=== PATIENT | female | born 1945 | race Caucasian/White ===

== ENCOUNTER 2022-04-09 08:30 | Inpatient (IN) | payer MEDICARE, OTHER ==
[~2022-04-09] VITALS: Ht 175.3 cm; Wt 72.3 kg
[2022-04-09 09:26] LABS: Potassium 4.2 mmol/L (3.5-5.1)
[2022-04-09 09:27] LABS: Eosinophils % (auto) 4.2 % (0.0-7.0); Hemoglobin 14.8 g/dL (12.2-16.2); Lymphocytes # (auto) 1.9 10 ^3/uL (0.4-5.4); Monocytes # (auto) 0.7 10 ^3/uL (0-1.3); Red Cell Distribution Width 13.9 % (11.8-14.3)
[2022-04-09 09:30] LABS: Basophils # (auto) 0.1 10 ^3/uL (0-0.2); Basophils % (auto) 0.7 % (0.0-2.0); Eosinophils # (auto) 0.4 10 ^3/uL (0-0.8); Hematocrit 43.7 % (36.0-46.0); Lymphocytes % (auto) 17.9 % (10.0-50.0); Mean Corpuscular Hemoglobin 34.5 pg (28.0-32.0); Mean Corpuscular Volume 101.7 fL (80.0-100.0); Monocytes % (auto) 6.7 % (0.0-12.0); Neutrophils # (auto) 7.5 10 ^3/uL (1.6-8.6); Neutrophils % (auto) 70.5 % (37.0-80.0); Nucleated Red Blood Cells % 0.3 %; White Blood Cell 10.7 10^3/uL (4.4-10.8)
[2022-04-09 09:31] LABS: Albumin 3.5 g/dL (3.4-5.0); Bilirubin, Total 0.6 mg/dL (0.2-1.0); Total Protein 6.7 g/dL (6.4-8.2)
[2022-04-09] MEDS ORDERED: ASPirin 325 MG TAB PO ONE (09:45)
[2022-04-09] MEDS ORDERED: ENOXAPARIN SOD 80 MG/0.8ML SYRINGE SC ONE (12:15)
[2022-04-09] MEDS ORDERED: MORPHINE SULFATE INJ 2 MG/ml SYRG IV PRN (13:00)
[2022-04-09] MEDS ORDERED: NITROGLYCERIN 0.4 MG SL TAB SL PRN (13:00)
[2022-04-09] MEDS ORDERED: ONDANSETRON HCL 4 MG/2 ML VIAL ONE (13:52)
[2022-04-09] MEDS ORDERED: ONDANSETRON HCL 4 MG/2 ML VIAL IV PRN (14:00)
[2022-04-09] MEDS ORDERED: LIDOCAINE 2%HCL (LOCAL ANESTH.) INJ 20ML MDV ONE (14:14)
[2022-04-09 14:54] LABS: Cholesterol 192 mg/dL (< 200); HDL Cholesterol 107 mg/dL (40-59); LDL Cholesterol 68 mg/dL (< 100); Triglycerides 158 mg/dL (< 150)
[2022-04-09 15:24] LABS: INR 1.17 (0.9-1.15); Partial Thromboplastin Time 34.7 sec (24.6-33.4)
[2022-04-09] MEDS ORDERED: HEPARIN SODIUM (PORCINE) 5000 UNITS/ML 1ML VIAL ONE (15:38)
[2022-04-09] MEDS ORDERED: ANGIOMAX 250 MG VIAL IV ONE (15:38)
[2022-04-09] MEDS ORDERED: SODIUM CHL 0.9% 0 ML ONE (15:39)
[2022-04-09] MEDS ORDERED: VERAPAMIL 2.5MG/ML INJ 2ML VIAL IV ONE (15:39)
[2022-04-09] MEDS ORDERED: MIDAZOLAM HCL 2MG/2ML 2ml VIAL (1mg/ml) ONE (15:39)
[2022-04-09] MEDS ORDERED: fentaNYL CITRATE 100 MCG/2 ML VL ONE (15:39)
[2022-04-09 16:12] VITALS: BP 110/76
[2022-04-09 16:25] VITALS: BP 107/71
[2022-04-09 16:41] VITALS: BP 100/65
[2022-04-09 17:00] VITALS: BP 103/66
[2022-04-09] MEDS ORDERED: LATA0.0020 EACHEYE (17:00)
[2022-04-09] MEDS ORDERED: TRAM50TA2 PO (17:00)
[2022-04-09] MEDS ORDERED: TIMO0.5S28 EACHEYE (17:00)
[2022-04-09] MEDS ORDERED: ALLO100T PO (17:00)
[2022-04-09] MEDS ORDERED: FLUT1AER3 IN (17:00)
[2022-04-09 22:00] VITALS: BP 98/59
[2022-04-10] MEDS: ATORVASTATIN 20 MG TAB PO SCH ×2 (02:02→22:17)
[2022-04-10 05:00] VITALS: BP 106/59
[2022-04-10 07:10] LABS: Carbon Dioxide 21 mmol/L (21-32); Chloride 106 mmol/L (98-107); Potassium 3.5 mmol/L (3.5-5.1); Sodium 138 mmol/L (136-145)
[2022-04-10 07:11] LABS: Albumin 2.8 g/dL (3.4-5.0); Anion Gap 11 (5-15); BUN/Creatinine Ratio 12.3; Blood Urea Nitrogen 7 mg/dL (7-18); Calcium 8.2 mg/dL (8.5-10.1); GFR African American 133 mL/min; GFR Non-African American 110 mL/min; Glucose 89 mg/dL (74-106)
[2022-04-10 07:13] LABS: Alanine Aminotransferase 17 U/L (13-56); Alkaline Phosphatase 59 U/L (45-117); Aspartate Aminotransferase 20 U/L (15-37); Bilirubin, Total 0.8 mg/dL (0.2-1.0); Total Protein 5.9 g/dL (6.4-8.2)
[2022-04-10 08:22] LABS: Basophils # (auto) 0 10 ^3/uL (0-0.2); Eosinophils # (auto) 0.2 10 ^3/uL (0-0.8); Hemoglobin 13.1 g/dL (12.2-16.2); Lymphocytes # (auto) 1.2 10 ^3/uL (0.4-5.4); Nucleated Red Blood Cells % 0.1 %
[2022-04-10 08:25] LABS: Basophils % (auto) 0.4 % (0.0-2.0); Eosinophils % (auto) 2.5 % (0.0-7.0); Hematocrit 38.3 % (36.0-46.0); Mean Corpuscular Hgb Conc. 34.3 g/dL (32.0-36.0); Mean Corpuscular Volume 102.1 fL (80.0-100.0); Monocytes # (auto) 0.7 10 ^3/uL (0-1.3); Monocytes % (auto) 10.7 % (0.0-12.0); Neutrophils # (auto) 4.5 10 ^3/uL (1.6-8.6); Neutrophils % (auto) 68.4 % (37.0-80.0); Red Blood Cells 3.75 10^6/uL (4.0-5.20); Red Cell Distribution Width 13.8 % (11.8-14.3); White Blood Cell 6.6 10^3/uL (4.4-10.8)
[2022-04-10 09:00] VITALS: BP 98/55
[2022-04-10] MEDS: ASPirin 81 mg TAB PO SCH (10:00)
[2022-04-10] MEDS ORDERED: THIAMINE HCL 100 MG TAB PO ONE (12:30)
[2022-04-10] MEDS ORDERED: FOLIC ACID 1 MG TAB PO ONE (12:30)
[2022-04-10] MEDS ORDERED: LORazepam 0.5 MG TAB PO PRN (12:30)
[2022-04-10 13:00] VITALS: BP 104/61
[2022-04-10 16:42] VITALS: BP 109/76
[2022-04-10 17:34] LABS: Urine Bacteria FEW /hpf (None Seen); Urine Blood Negative /uL (Negative); Urine Hyaline Cast FEW /lpf (0 - 2); Urine Mucus FEW (None Seen); Urine Specific Gravity 1.025 (1.001-1.035); Urine WBC 28 /hpf (0 - 5)
[2022-04-10 18:55] LABS: BUN/Creatinine Ratio 8.6; Calcium 8.9 mg/dL (8.5-10.1); Potassium 3.6 mmol/L (3.5-5.1)
[2022-04-10 20:00] VITALS: BP 115/71
[2022-04-10 22:00] VITALS: BP 98/61
[2022-04-10] MEDS: SACUBITRIL-VALSARTAN 24mg/26mg TAB PO SCH (22:16)
[2022-04-11 05:00] VITALS: BP 91/58
[2022-04-11 06:13] LABS: Basophils # (auto) 0.1 10 ^3/uL (0-0.2); Eosinophils # (auto) 0.2 10 ^3/uL (0-0.8); Eosinophils % (auto) 3.5 % (0.0-7.0); Lymphocytes # (auto) 1.4 10 ^3/uL (0.4-5.4); Monocytes # (auto) 0.9 10 ^3/uL (0-1.3); Neutrophils # (auto) 4.3 10 ^3/uL (1.6-8.6)
[2022-04-11 06:18] LABS: Basophils % (auto) 0.8 % (0.0-2.0); Hematocrit 38.6 % (36.0-46.0); Hemoglobin 13.2 g/dL (12.2-16.2); Lymphocytes % (auto) 20.7 % (10.0-50.0); Mean Corpuscular Hemoglobin 34.8 pg (28.0-32.0); Mean Corpuscular Hgb Conc. 34.2 g/dL (32.0-36.0); Mean Corpuscular Volume 101.8 fL (80.0-100.0); Monocytes % (auto) 13.5 % (0.0-12.0); Neutrophils % (auto) 61.5 % (37.0-80.0); Red Blood Cells 3.79 10^6/uL (4.0-5.20); Red Cell Distribution Width 13.7 % (11.8-14.3)
[2022-04-11 06:34] LABS: Calcium 8.4 mg/dL (8.5-10.1); Potassium 3.2 mmol/L (3.5-5.1)
[2022-04-11 06:40] LABS: BUN/Creatinine Ratio 9.7
[2022-04-11 09:00] VITALS: BP 104/69
[2022-04-11] MEDS: SACUBITRIL-VALSARTAN 24mg/26mg TAB PO SCH (10:00)
[2022-04-11] MEDS: ASPirin 81 mg TAB PO SCH (10:00)
[2022-04-11] MEDS ORDERED: FOLIC ACID 1 MG TAB PO SCH (10:00)
[2022-04-11] MEDS ORDERED: THIAMINE HCL 100 MG TAB PO SCH (10:00)
[2022-04-11] MEDS ORDERED: ASPI-325 PO (12:33)
[2022-04-11] MEDS ORDERED: ATOR20TA50 PO (12:33)
[2022-04-11] MEDS ORDERED: SACU1TAB PO (12:33)
[2022-04-11] MEDS ORDERED: LEVO500T31 PO (12:36)
[2022-04-11] MEDS ORDERED: POTASSIUM CHL 20 Meq TABLET PO ONE (12:45)
[2022-04-11 13:00] VITALS: BP 120/74
== END 2022-04-11 15:10 | disposition home or self-care (01) | DRG 281 ==
LOC: ER 08:30 → TELE 12:55 → TELE-WESTW 17:05
PROVIDERS: ADMIT Registered Nurse; ATTEND Internal Medicine
PROC: 4A023N7 Measurement of Cardiac Sampling and Pressure, Left Heart, Percutaneous Approach (ICD-10-PCS; principal; 2022-04-09)
PROC: B2111ZZ Fluoroscopy of Multiple Coronary Arteries using Low Osmolar Contrast (ICD-10-PCS; 2022-04-09)
PROC: B2151ZZ Fluoroscopy of Left Heart using Low Osmolar Contrast (ICD-10-PCS; 2022-04-09)
DX: I21.4 Non-ST elevation (NSTEMI) myocardial infarction (principal); I51.81 Takotsubo syndrome; N39.0 Urinary tract infection, site not specified; E78.5 Hyperlipidemia, unspecified; F10.10 Alcohol abuse, uncomplicated; J44.9 Chronic obstructive pulmonary disease, unspecified; Z20.822 Contact with and (suspected) exposure to COVID-19; M10.9 Gout, unspecified; Z79.82 Long term (current) use of aspirin; Z79.899 Other long term (current) drug therapy; Z85.820 Personal history of malignant melanoma of skin
CPT/HCPCS: 36415; 71045; 80048; 80053; 80061; 81001; 83036; 83735; 83880; 84443; 84484; 85025; 85379; 85610; 85730; 86850; 86900; 86901; 93005; 93306; 96372; 96374; G0378; J2250; J2405